=== PATIENT | female | born 1965 | race Caucasian/White ===

== ENCOUNTER 2019-03-16 11:24 | Day surgery (SDC) | payer OTHER ==
[2019-03-16] MEDS ORDERED: Depo-Medrol 40 MG/ML IM ONE (11:25)
[2019-03-16] MEDS ORDERED: Xylocaine 1% Vial 30 ML PF IJ ONE (11:25)
[2019-03-16] MEDS ORDERED: Sodium Chloride 0.9(Preservative Free) 10 ML IJ ONE (11:25)
[2019-03-16] MEDS ORDERED: DIPRIVAN 200 MG/20 ML IV ONE (12:28)
[2019-03-16] MEDS ORDERED: Ketamine HCl 50 MG/ML ONE (12:28)
--- NOTE | 2019-03-16 13:37 | XRAY ---
Indication: L5-S1 RODNEY. Intraoperative fluoroscopy was provided for 19 seconds. 2 digital spot images submitted for interpretation demonstrates midline needle tip projecting just posterior to the inferior L5 segment. Small amount of contrast injected for needle tip placement. Correlate with intraoperative findings/report.
--- NOTE | 2019-03-16 14:02 | XRAY ---
19 seconds fluoroscopy time in surgery for L5-S1 RODNEY.
[2019-03-16] MEDS ORDERED: Lactated Ringers 1,000 ML IV ONE (15:25)
== END 2019-03-16 13:08 | disposition home or self-care (01) ==
LOC: SDC-PAIN 11:24
PROVIDERS: ATTEND Psychiatry & Neurology Pain Medicine
DX: M54.16 Radiculopathy, lumbar region (principal); I10 Essential (primary) hypertension; F32.9 Major depressive disorder, single episode, unspecified; Z79.899 Other long term (current) drug therapy
CPT/HCPCS: 62323; 72100; 77003; J1030; J2001; J2704

== ENCOUNTER 2020-02-01 14:21 | Day surgery (SDC) | payer OTHER ==
[2020-02-01] MEDS ORDERED: Depo-Medrol 40 MG/ML IM ONE (14:22)
[2020-02-01] MEDS ORDERED: Marcaine 0.5% SDV 10 ML IJ ONE (14:22)
[2020-02-01] MEDS ORDERED: Lactated Ringers 1,000 ML IV ONE (16:38)
--- NOTE | 2020-02-01 16:39 | XRAY ---
24 seconds fluoroscopy time in surgery for bilateral SI joint injections.
--- NOTE | 2020-02-01 16:49 | XRAY ---
Indication: Left SI joint injection. Intraoperative fluoroscopy was provided for 24 seconds. 2 digital spot images submitted for interpretation demonstrates posterior needle tip projecting over the inferior left SI joint. Correlate with intraoperative findings/report.
== END 2020-02-01 15:37 | disposition home or self-care (01) ==
LOC: SDC-PAIN 14:21
PROVIDERS: ATTEND Psychiatry & Neurology Pain Medicine
DX: M46.1 Sacroiliitis, not elsewhere classified (principal); I10 Essential (primary) hypertension; Z79.899 Other long term (current) drug therapy
CPT/HCPCS: 27096; 72202; 77002; J1030; G0260

== ENCOUNTER 2020-04-18 12:31 | Day surgery (SDC) | payer BC, OTHER ==
[~2020-04-18 12:31] MED LIST: DIPRIVAN 200 MG/20 ML IV ONE; Ketamine HCl 50 MG/ML ONE
[2020-04-18] MEDS ORDERED: BUPIVACAINE 0.5% VIAL IJ ONE (12:32)
[2020-04-18] MEDS ORDERED: Lactated Ringers 1,000 ML IV ONE (15:51)
--- NOTE | 2020-04-18 16:26 | XRAY ---
Indication: Ganglion nerve block. Intraoperative fluoroscopy was provided for 25 seconds. Single digital spot image submitted for interpretation demonstrates posterior needle tip projecting just anterior to the sacrococcygeal junction. Small amount of contrast injected needle tip placement. Correlate with intraoperative findings/report.
--- NOTE | 2020-04-18 16:28 | XRAY ---
25 seconds fluoroscopy time in surgery for ganglion impar nerve block.
== END 2020-04-18 14:30 | disposition home or self-care (01) ==
LOC: SDC-PAIN 12:31
PROVIDERS: ATTEND Psychiatry & Neurology Pain Medicine
DX: M54.81 Occipital neuralgia (principal); I10 Essential (primary) hypertension; F41.8 Other specified anxiety disorders; Z79.899 Other long term (current) drug therapy
CPT/HCPCS: 64520; 72220; 77002; J2704; Q9966

== ENCOUNTER 2020-08-22 08:55 | Day surgery (SDC) | payer BC ==
[2020-08-22] MEDS ORDERED: LIDOCAINE HCL 2% 100 MG/5 ML IJ ONE (08:56)
[2020-08-22] MEDS ORDERED: Depo-Medrol 40 MG/ML IM ONE (08:56)
[2020-08-22] MEDS ORDERED: Ketamine HCl 50 MG/ML ONE (09:34)
[2020-08-22] MEDS ORDERED: DIPRIVAN 200 MG/20 ML IV ONE (09:34)
--- NOTE | 2020-08-22 11:25 | XRAY ---
Indication: Bilateral L4-L5 and L5-S1 MBB. Intraoperative fluoroscopy was provided for 31 seconds. Single digital spot image submitted for interpretation demonstrates posterior needle tips projecting over the left and right L3-L5 nerve roots. Correlate with intraoperative findings/report.
--- NOTE | 2020-08-22 11:39 | XRAY ---
31 seconds of fluoroscopy was used in surgery for a bilateral L4-L5 and L5-S1 MBB.
[2020-08-22] MEDS ORDERED: Lactated Ringers 1,000 ML IV ONE (14:59)
== END 2020-08-22 11:00 | disposition home or self-care (01) ==
LOC: SDC-PAIN 08:55
PROVIDERS: ATTEND Psychiatry & Neurology Pain Medicine
DX: M47.816 Spondylosis without myelopathy or radiculopathy, lumbar region (principal); I10 Essential (primary) hypertension; Z79.899 Other long term (current) drug therapy
CPT/HCPCS: 64493; 64494; 72020; 77002; J1030; J2704

== ENCOUNTER 2020-09-12 12:00 | Day surgery (SDC) | payer BC ==
[2020-09-12] MEDS ORDERED: Depo-Medrol 40 MG/ML IM ONE (12:01)
[2020-09-12] MEDS ORDERED: BUPIVACAINE 0.5% VIAL IJ ONE (12:01)
[2020-09-12] MEDS ORDERED: DIPRIVAN 200 MG/20 ML IV ONE (13:53)
[2020-09-12] MEDS ORDERED: Ketamine HCl 50 MG/ML ONE (13:53)
[2020-09-12] MEDS ORDERED: BENADRYL 50 MG/ML ONE (13:54)
[2020-09-12] MEDS ORDERED: Lactated Ringers 1,000 ML IV ONE (14:06)
--- NOTE | 2020-09-12 16:16 | XRAY ---
Indication: Bilateral L4-S1 MBB. Intraoperative fluoroscopy provided for 36 seconds. Single digital spot image submitted for interpretation demonstrates posterior needle tips projecting over the expected left and right L4-S1 nerve roots. Correlate with intraoperative findings/report.
--- NOTE | 2020-09-12 16:17 | XRAY ---
36 seconds fluoroscopy time in surgery for bilateral L4-S1 MBB.
== END 2020-09-12 14:32 | disposition home or self-care (01) ==
LOC: SDC-PAIN 12:00
PROVIDERS: ATTEND Psychiatry & Neurology Pain Medicine
DX: M47.816 Spondylosis without myelopathy or radiculopathy, lumbar region (principal); I10 Essential (primary) hypertension; Z79.899 Other long term (current) drug therapy
CPT/HCPCS: 64493; 64494; 72020; 77002; J1030; J1200; J2704

== ENCOUNTER 2020-11-07 12:00 | Day surgery (SDC) | payer BC ==
[2020-11-07] MEDS ORDERED: Depo-Medrol 40 MG/ML IM ONE (12:01)
[2020-11-07] MEDS ORDERED: BUPIVACAINE 0.5% VIAL IJ ONE (12:01)
[2020-11-07] MEDS ORDERED: Xylocaine 1% Vial 30 ML PF IJ ONE (12:01)
[2020-11-07] MEDS ORDERED: Ketamine HCl 50 MG/ML ONE (13:25)
[2020-11-07] MEDS ORDERED: DIPRIVAN 200 MG/20 ML IV ONE ×2 (13:25→13:37)
[2020-11-07] MEDS ORDERED: Lactated Ringers 1,000 ML IV ONE (13:53)
--- NOTE | 2020-11-07 14:55 | XRAY ---
Indication: Left L4-S1 RFA. Intraoperative fluoroscopy was provided for 49 seconds. 5 digital spot image submitted for interpretation demonstrates posterior needle tips projecting over the expected left left L4-S1 nerve roots. Correlate with intraoperative findings/report.
--- NOTE | 2020-11-07 15:08 | XRAY ---
49 seconds fluoroscopy time in surgery for left L4-S1 RFA.
== END 2020-11-07 14:05 | disposition home or self-care (01) ==
LOC: SDC-PAIN 12:00
PROVIDERS: ATTEND Psychiatry & Neurology Pain Medicine
DX: M47.816 Spondylosis without myelopathy or radiculopathy, lumbar region (principal); I10 Essential (primary) hypertension; F32.9 Major depressive disorder, single episode, unspecified; Z79.899 Other long term (current) drug therapy
CPT/HCPCS: 64635; 64636; 72100; 77002; J1030; J2001; J2704

== ENCOUNTER 2020-11-14 07:02 | Day surgery (SDC) | payer BC ==
[2020-11-14] MEDS ORDERED: Depo-Medrol 40 MG/ML IM ONE (07:03)
[2020-11-14] MEDS ORDERED: BUPIVACAINE 0.5% VIAL IJ ONE (07:03)
[2020-11-14] MEDS ORDERED: Xylocaine 1% Vial 30 ML PF IJ ONE (07:03)
[2020-11-14] MEDS ORDERED: DIPRIVAN 200 MG/20 ML IV ONE (07:32)
--- NOTE | 2020-11-14 09:08 | XRAY ---
Indication: Right L4-S1 RFA. Intraoperative fluoroscopy provided for 44 seconds. 4 digital spot images submitted for interpretation demonstrates posterior needle tips projecting over the expected right L4-S1 nerve roots. Correlate with intraoperative findings/report.
--- NOTE | 2020-11-14 09:08 | XRAY ---
44 seconds fluoroscopy time in surgery for right L4-S1 RFA.
[2020-11-14] MEDS ORDERED: Lactated Ringers 1,000 ML IV ONE (16:08)
== END 2020-11-14 08:32 | disposition home or self-care (01) ==
LOC: SDC-PAIN 07:02
PROVIDERS: ATTEND Psychiatry & Neurology Pain Medicine
DX: M47.816 Spondylosis without myelopathy or radiculopathy, lumbar region (principal); I10 Essential (primary) hypertension; F41.8 Other specified anxiety disorders; E07.9 Disorder of thyroid, unspecified; Z79.899 Other long term (current) drug therapy
CPT/HCPCS: 64635; 64636; 72100; 77002; J1030; J2001; J2704

== ENCOUNTER 2021-05-29 14:34 | Day surgery (SDC) | payer BC ==
[2021-05-29] MEDS ORDERED: Depo-Medrol 40 MG/ML IM ONE (14:35)
[2021-05-29] MEDS ORDERED: BUPIVACAINE 0.5% VIAL IJ ONE (14:35)
[2021-05-29] MEDS ORDERED: DIPRIVAN 200 MG/20 ML IV ONE (16:56)
[2021-05-29] MEDS ORDERED: Lactated Ringers 1,000 ML IV ONE (17:31)
--- NOTE | 2021-05-30 07:22 | XRAY ---
Indication: Left knee injection. Intraoperative fluoroscopy provided for 9 seconds. Single digital spot image submitted for interpretation demonstrates needle tip projecting left femur intercondylar notch. Small amount of contrast injected for needle tip placement. Correlate with intraoperative findings/report.
--- NOTE | 2021-05-30 07:32 | XRAY ---
Indication: Right knee injection. Intraoperative fluoroscopy provided for 9 seconds. Single digital spot image submitted for interpretation demonstrates needle tip projecting right femur intercondylar notch. Small amount of contrast injected for needle tip placement. Correlate with intraoperative findings/report.
--- NOTE | 2021-05-30 09:07 | XRAY ---
9 seconds fluoroscopy time in surgery for intra-articular injection of the right knee.
--- NOTE | 2021-05-30 09:17 | XRAY ---
9 seconds fluoroscopy time in surgery for intra-articular injection of the left knee.
== END 2021-05-29 17:24 | disposition home or self-care (01) ==
LOC: SDC-PAIN 14:34
PROVIDERS: ATTEND Psychiatry & Neurology Pain Medicine
DX: M17.0 Bilateral primary osteoarthritis of knee (principal); F41.9 Anxiety disorder, unspecified; F32.9 Major depressive disorder, single episode, unspecified; I10 Essential (primary) hypertension; M19.90 Unspecified osteoarthritis, unspecified site; Z79.899 Other long term (current) drug therapy
CPT/HCPCS: 20610; 73560; 77002; J1030; J2704; Q9966

== ENCOUNTER 2021-09-26 08:47 | Day surgery (SDC) | payer BC ==
[2021-09-26] MEDS ORDERED: Depo-Medrol 40 MG/ML IM ONE (08:48)
[2021-09-26] MEDS ORDERED: BUPIVACAINE 0.5% VIAL IJ ONE (08:48)
[2021-09-26] MEDS ORDERED: DIPRIVAN 200 MG/20 ML IV ONE (10:17)
[2021-09-26] MEDS ORDERED: Lactated Ringers 1,000 ML IV ONE (10:29)
--- NOTE | 2021-09-27 09:53 | XRAY ---
Indication: Right knee injection. Intraoperative fluoroscopy provided for 7 seconds. Single digital spot image submitted for interpretation demonstrates needle tip projecting right femur intercondylar notch. Small amount of contrast injected for needle tip placement. Correlate with intraoperative findings/report.
--- NOTE | 2021-09-27 09:53 | XRAY ---
Indication: Left knee injection. Intraoperative fluoroscopy provided for 5 seconds. Single digital spot image submitted for interpretation demonstrates needle tip projecting left femur intercondylar notch. Small amount of contrast injected for needle tip placement. Correlate with intraoperative findings/report.
--- NOTE | 2021-09-27 09:58 | XRAY ---
7 seconds of fluoroscopy was used in surgery for a right knee intra-articular injection.
--- NOTE | 2021-09-27 09:58 | XRAY ---
5 seconds of fluoroscopy was used in surgery for a left knee intra-articular injection.
== END 2021-09-26 10:45 | disposition home or self-care (01) ==
LOC: SDC-PAIN 08:47
PROVIDERS: ATTEND Psychiatry & Neurology Pain Medicine
DX: M17.0 Bilateral primary osteoarthritis of knee (principal); I10 Essential (primary) hypertension; Z79.899 Other long term (current) drug therapy
CPT/HCPCS: 20610; 73560; 77002; J1030; J2704; Q9966

== ENCOUNTER 2021-10-24 11:33 | Day surgery (SDC) | payer BC ==
[2021-10-24] MEDS ORDERED: Sodium Chloride 0.9(Preservative Free) 10 ML IJ ONE (11:34)
[2021-10-24] MEDS ORDERED: Xylocaine 1% Vial 30 ML PF IJ ONE (11:34)
[2021-10-24] MEDS ORDERED: Depo-Medrol 40 MG/ML IM ONE (11:34)
[2021-10-24] MEDS ORDERED: DIPRIVAN 200 MG/20 ML IV ONE (12:48)
[2021-10-24] MEDS ORDERED: BENADRYL 50 MG/ML ONE (12:49)
--- NOTE | 2021-10-24 13:41 | XRAY ---
Indication: Lumbar RODNEY. Intraoperative fluoroscopy provided for 22 seconds. 2 digital spot image submitted for interpretation demonstrates midline posterior needle tip projecting posterior to L4-L5 interspace. Small amount of contrast injected for needle tip placement. Correlate with intraoperative findings/report.
[2021-10-24] MEDS ORDERED: Lactated Ringers 1,000 ML IV ONE (13:56)
--- NOTE | 2021-10-24 15:33 | XRAY ---
22 seconds of fluoroscopy was used in surgery for a lumbar RODNEY.
== END 2021-10-24 13:22 | disposition home or self-care (01) ==
LOC: SDC-PAIN 11:33
PROVIDERS: ATTEND Psychiatry & Neurology Pain Medicine
DX: M54.16 Radiculopathy, lumbar region (principal); I10 Essential (primary) hypertension; Z79.899 Other long term (current) drug therapy
CPT/HCPCS: 62323; 72100; 77003; J1030; J1200; J2001; J2704; Q9966

== ENCOUNTER 2021-11-27 12:29 | Day surgery (SDC) | payer BC ==
[2021-11-27] MEDS ORDERED: Depo-Medrol 40 MG/ML IM ONE (12:30)
[2021-11-27] MEDS ORDERED: Sodium Chloride 0.9(Preservative Free) 10 ML IJ ONE (12:30)
[2021-11-27] MEDS ORDERED: BENADRYL 50 MG/ML ONE (13:19)
[2021-11-27] MEDS ORDERED: Lactated Ringers 1,000 ML IV ONE (14:06)
[2021-11-27] MEDS ORDERED: DIPRIVAN 200 MG/20 ML IV ONE ×2 (14:34→14:47)
--- NOTE | 2021-11-27 15:10 | XRAY ---
Indication: Caudal RODNEY. Intraoperative fluoroscopy provided for 48 seconds. 2 digital spot image submitted for interpretation demonstrates caudal needle tip projecting mid sacrum. Small amount of contrast injected for needle tip placement. Correlate with intraoperative findings/report.
--- NOTE | 2021-11-27 16:28 | XRAY ---
48 seconds fluoroscopy time in surgery for caudal RODNEY.
== END 2021-11-27 15:10 | disposition home or self-care (01) ==
LOC: SDC-PAIN 12:29
PROVIDERS: ATTEND Psychiatry & Neurology Pain Medicine
DX: M54.16 Radiculopathy, lumbar region (principal); I10 Essential (primary) hypertension; Z79.899 Other long term (current) drug therapy
CPT/HCPCS: 62323; 72100; 77003; J1030; J1200; J2704; Q9966

== ENCOUNTER 2022-01-15 13:56 | Day surgery (SDC) | payer BC ==
[2022-01-15] MEDS ORDERED: Sodium Chloride 0.9(Preservative Free) 10 ML IJ ONE (13:57)
[2022-01-15] MEDS ORDERED: Depo-Medrol 40 MG/ML IM ONE (13:57)
[2022-01-15] MEDS ORDERED: BENADRYL 50 MG/ML ONE (17:38)
[2022-01-15] MEDS ORDERED: DIPRIVAN 200 MG/20 ML IV ONE (17:38)
[2022-01-15] MEDS ORDERED: Lactated Ringers 1,000 ML IV ONE (19:28)
--- NOTE | 2022-01-15 21:31 | XRAY ---
Indication: Left L4-S1 transforaminal RODNEY. Intraoperative fluoroscopy provided for 39 seconds. 4 digital spot image submitted for interpretation demonstrates posterior needle tips projecting over the expected left L4 and L5 nerve roots. Small amount of contrast injected for needle tip placement. Correlate with intraoperative findings/report.
--- NOTE | 2022-01-16 09:13 | XRAY ---
39 seconds of fluoroscopy was used in surgery for a left L4-S1 transforaminal RODNEY.
== END 2022-01-15 18:03 | disposition home or self-care (01) ==
LOC: SDC-PAIN 13:56
PROVIDERS: ATTEND Psychiatry & Neurology Pain Medicine
DX: M54.16 Radiculopathy, lumbar region (principal); Z79.899 Other long term (current) drug therapy
CPT/HCPCS: 64483; 64484; 72100; 77003; J1030; J1200; J2704; Q9966

== ENCOUNTER 2022-04-02 13:40 | Day surgery (SDC) | payer BC ==
[2022-04-02] MEDS ORDERED: Marcaine Mpf 0.5% Vial 30 Ml IJ ONE (13:41)
[2022-04-02] MEDS ORDERED: Depo-Medrol 40 MG/ML IM ONE (13:41)
[2022-04-02] MEDS ORDERED: DIPRIVAN 200 MG/20 ML IV ONE (15:18)
[2022-04-02] MEDS ORDERED: Lactated Ringers 1,000 ML IV ONE (15:20)
[2022-04-02] MEDS ORDERED: BENADRYL 50 MG/ML ONE (15:21)
--- NOTE | 2022-04-02 16:45 | XRAY ---
Indication: Right shoulder injection Intraoperative fluoroscopy provided for 26 seconds. Single digital spot image submitted for interpretation demonstrates needle tip projecting over the right glenohumeral joint superiorly. Small amount of contrast injected for needle tip placement. Correlate with intraoperative findings/report.
--- NOTE | 2022-04-02 16:52 | XRAY ---
26 seconds of fluoroscopy was used in surgery for a right shoulder intra-articular injection.
== END 2022-04-02 15:47 | disposition home or self-care (01) ==
LOC: SDC-PAIN 13:40
PROVIDERS: ATTEND Psychiatry & Neurology Pain Medicine
DX: M19.011 Primary osteoarthritis, right shoulder (principal); Z79.899 Other long term (current) drug therapy
CPT/HCPCS: 20610; 73030; 77002; J1030; J1200; J2704; Q9966

== ENCOUNTER 2022-07-02 07:46 | Day surgery (SDC) | payer BC ==
[2022-07-02] MEDS ORDERED: BUPIVACAINE 0.5% VIAL IJ ONE (07:47)
[2022-07-02] MEDS ORDERED: Depo-Medrol 40 MG/ML IM ONE (07:47)
[2022-07-02] MEDS ORDERED: Xylocaine 1% Vial 30 ML PF IJ ONE (07:47)
[2022-07-02] MEDS ORDERED: DIPRIVAN 200 MG/20 ML IV ONE (09:10)
[2022-07-02] MEDS ORDERED: Ketamine HCl 50 MG/ML ONE (09:12)
[2022-07-02] MEDS ORDERED: Lactated Ringers 1,000 ML IV ONE (10:27)
--- NOTE | 2022-07-02 19:33 | XRAY ---
Indication: Left L4-S1 RFA. Intraoperative fluoroscopy provided for 34 seconds. 3 digital spot submitted for interpretation demonstrates posterior needle tips projecting over the expected left L4-S1 nerve roots. Correlate with intraoperative findings/report.
--- NOTE | 2022-07-02 20:00 | XRAY ---
34 seconds fluoroscopy time in surgery for left L4-S1 RFA.
== END 2022-07-02 09:36 | disposition home or self-care (01) ==
LOC: SDC-PAIN 07:46
PROVIDERS: ATTEND Psychiatry & Neurology Pain Medicine
DX: M47.816 Spondylosis without myelopathy or radiculopathy, lumbar region (principal); Z79.899 Other long term (current) drug therapy
CPT/HCPCS: 64635; 64636; 72100; 77002; J1030; J2001; J2704

== ENCOUNTER 2022-07-09 10:53 | Day surgery (SDC) | payer BC ==
[2022-07-09] MEDS ORDERED: Depo-Medrol 40 MG/ML IM ONE (10:54)
[2022-07-09] MEDS ORDERED: XYLOCAINE-MPF 1% 5ML SDV IJ ONE (10:54)
[2022-07-09] MEDS ORDERED: BUPIVACAINE 0.5% VIAL IJ ONE (10:54)
[2022-07-09] MEDS ORDERED: DIPRIVAN 200 MG/20 ML IV ONE (13:10)
[2022-07-09] MEDS ORDERED: BENADRYL 50 MG/ML ONE (13:16)
--- NOTE | 2022-07-09 14:01 | XRAY ---
Indication: Right L4-S1 RFA. Intraoperative fluoroscopy provided for 29 seconds. 5 digital spot images submitted for interpretation demonstrates posterior needle tips projecting over expected right L4-S1 nerve roots. Correlate with intraoperative findings/report.
[2022-07-09] MEDS ORDERED: Lactated Ringers 1,000 ML IV ONE (16:31)
--- NOTE | 2022-07-09 16:44 | XRAY ---
29 seconds of fluoroscopy was used in surgery for a right L4-S1 RFA.
== END 2022-07-09 13:50 | disposition home or self-care (01) ==
LOC: SDC-PAIN 10:53
PROVIDERS: ATTEND Psychiatry & Neurology Pain Medicine
DX: M47.816 Spondylosis without myelopathy or radiculopathy, lumbar region (principal); Z79.899 Other long term (current) drug therapy
CPT/HCPCS: 64635; 64636; 72100; 77002; 82947; J1030; J1200; J2704

== ENCOUNTER 2022-09-03 13:52 | Day surgery (SDC) | payer BC ==
[2022-09-03] MEDS ORDERED: BUPIVACAINE 0.5% VIAL IJ ONE (13:53)
[2022-09-03] MEDS ORDERED: Depo-Medrol 40 MG/ML IM ONE (13:53)
[2022-09-03] MEDS ORDERED: BENADRYL 50 MG/ML ONE (14:13)
[2022-09-03] MEDS ORDERED: TORAdol 30 mg Injection ONE (14:13)
[2022-09-03] MEDS ORDERED: Zofran 4 MG/2 ML VIAL ONE (14:13)
[2022-09-03] MEDS ORDERED: DIPRIVAN 200 MG/20 ML IV ONE (15:39)
[2022-09-03] MEDS ORDERED: Lactated Ringers 1,000 ML IV ONE (16:50)
--- NOTE | 2022-09-03 17:00 | XRAY ---
Indication: Bilateral SI joint injection. Intraoperative fluoroscopy provided for 19 seconds. 4 digital spot images submitted for interpretation demonstrates posterior needle tip projecting over the left and right SI joint. Correlate with intraoperative findings/report.
--- NOTE | 2022-09-03 20:02 | XRAY ---
19 seconds of fluoroscopy was used in surgery for a bilateral sacroiliac joint injection.
== END 2022-09-03 16:17 | disposition home or self-care (01) ==
LOC: SDC-PAIN 13:52
PROVIDERS: ATTEND Psychiatry & Neurology Pain Medicine
DX: M46.1 Sacroiliitis, not elsewhere classified (principal); Z79.899 Other long term (current) drug therapy
CPT/HCPCS: 27096; 72202; 77002; J1030; J1200; J1885; J2405; J2704; G0260

== ENCOUNTER 2023-05-21 09:03 | Day surgery (SDC) | payer BC ==
[2023-05-21] MEDS ORDERED: BUPIVACAINE 0.5% VIAL IJ ONE (09:04)
[2023-05-21] MEDS ORDERED: Depo-Medrol 40 MG/ML IM ONE (09:04)
[2023-05-21] MEDS ORDERED: BENADRYL 50 MG/ML ONE (11:24)
[2023-05-21] MEDS ORDERED: DIPRIVAN 200 MG/20 ML IV ONE (11:46)
--- NOTE | 2023-05-21 12:28 | XRAY ---
Indication: Left knee and pes anserine bursa injection. Intraoperative fluoroscopy provided for 4 seconds. Single digital spot image submitted for interpretation demonstrates needle tip projecting over left femur intercondylar notch necks. Small amount of contrast injected for needle tip placement. Correlate with intraoperative findings/report.
--- NOTE | 2023-05-21 12:28 | XRAY ---
Indication: Right knee and pes anserine bursa injection. Intraoperative fluoroscopy provided for 6 seconds. Single digital spot image submitted for interpretation demonstrates needle tip projecting over right femur intercondylar notch necks. Small amount of contrast injected for needle tip placement. Correlate with intraoperative findings/report.
[2023-05-21] MEDS ORDERED: Lactated Ringers 1,000 ML IV ONE (12:29)
--- NOTE | 2023-05-21 12:33 | XRAY ---
6 seconds of fluoroscopy was used in surgery for a right intra-articular knee and pes anserine bursa injection.
--- NOTE | 2023-05-21 12:33 | XRAY ---
4 seconds of fluoroscopy was used in surgery for a left intra-articular knee and pes anserine bursa injection.
== END 2023-05-21 12:15 | disposition home or self-care (01) ==
LOC: SDC-PAIN 09:03
PROVIDERS: ATTEND Psychiatry & Neurology Pain Medicine
DX: M17.0 Bilateral primary osteoarthritis of knee (principal)
CPT/HCPCS: 20610; 73560; 77002; J1030; J1200; J2704; Q9966

== ENCOUNTER 2023-07-01 13:29 | Day surgery (SDC) | payer BC ==
[2023-07-01] MEDS ORDERED: Depo-Medrol 40 MG/ML IM ONE (13:30)
[2023-07-01] MEDS ORDERED: BUPIVACAINE 0.5% VIAL IJ ONE (13:30)
[2023-07-01] MEDS ORDERED: XYLOCAINE-MPF 1% 5ML SDV IJ ONE (13:30)
[2023-07-01] MEDS ORDERED: Versed 2 MG/2 ML Injection ONE (15:49)
[2023-07-01] MEDS ORDERED: DIPRIVAN 200 MG/20 ML IV ONE (15:49)
[2023-07-01] MEDS ORDERED: BENADRYL 50 MG/ML ONE (15:52)
[2023-07-01] MEDS ORDERED: Lactated Ringers 1,000 ML IV ONE (16:28)
--- NOTE | 2023-07-01 20:57 | XRAY ---
Indication: Right L4-S1 RFA. Intraoperative fluoroscopy provided for 33 seconds. 7 digital spot image submitted for interpretation demonstrates posterior needle tip projecting over the expected right L4-S1 nerve roots. Correlate with intraoperative findings/report.
--- NOTE | 2023-07-01 21:44 | XRAY ---
33 seconds of fluoroscopy was used in surgery for a right L4-S1 RFA.
== END 2023-07-01 16:25 | disposition home or self-care (01) ==
LOC: SDC-PAIN 13:29
PROVIDERS: ATTEND Psychiatry & Neurology Pain Medicine
DX: M47.816 Spondylosis without myelopathy or radiculopathy, lumbar region (principal)
CPT/HCPCS: 64635; 64636; 72100; 77002; J1030; J1200; J2250; J2704

== ENCOUNTER 2023-07-02 13:42 | Day surgery (SDC) | payer BC ==
[2023-07-02] MEDS ORDERED: XYLOCAINE-MPF 1% 5ML SDV IJ ONE (13:43)
[2023-07-02] MEDS ORDERED: Depo-Medrol 40 MG/ML IM ONE (13:43)
[2023-07-02] MEDS ORDERED: BUPIVACAINE 0.5% VIAL IJ ONE (13:43)
[2023-07-02] MEDS ORDERED: DIPRIVAN 200 MG/20 ML IV ONE ×2 (15:11→15:19)
[2023-07-02] MEDS ORDERED: Lactated Ringers 1,000 ML IV ONE (15:35)
--- NOTE | 2023-07-02 16:22 | XRAY ---
Indication: Left L4-S1 RFA. Intraoperative fluoroscopy provided for 35 seconds. 3 digital spot images submitted for interpretation demonstrates posterior needle tips projecting over the expected left L4-S1 nerve roots. Correlate with intraoperative findings/report.
--- NOTE | 2023-07-03 11:51 | XRAY ---
35 seconds of fluoroscopy was used in surgery for a left L4-S1 RFA.
== END 2023-07-02 15:30 | disposition home or self-care (01) ==
LOC: SDC-PAIN 13:42
PROVIDERS: ATTEND Psychiatry & Neurology Pain Medicine
DX: M47.817 Spondylosis without myelopathy or radiculopathy, lumbosacral region (principal)
CPT/HCPCS: 64635; 64636; 72100; 77002; J1030; J2704

== ENCOUNTER 2023-09-09 12:51 | Day surgery (SDC) | payer BC, SELFPAY ==
[2023-09-09] MEDS ORDERED: XYLOCAINE-MPF 1% 5ML SDV IJ ONE (12:52)
[2023-09-09] MEDS ORDERED: BUPIVACAINE 0.5% VIAL IJ ONE (12:52)
[2023-09-09] MEDS ORDERED: Lactated Ringers 1,000 ML IV ONE (15:35)
[2023-09-09] MEDS ORDERED: DIPRIVAN 200 MG/20 ML IV ONE (15:45)
--- NOTE | 2023-09-09 17:03 | XRAY ---
Indication: Ganglion IMPAR block. Intraoperative fluoroscopy provided for 18 seconds. 3 digital spot images submitted for interpretation demonstrates posterior needle tip projecting just anterior to sacrococcyx. Small amount of contrast injected for needle tip placement. Correlate with intraoperative findings/report.
--- NOTE | 2023-09-09 17:41 | XRAY ---
18 seconds of fluoroscopy was used in surgery for a ganglion impar block.
== END 2023-09-09 16:18 | disposition home or self-care (01) ==
LOC: SDC-PAIN 12:51
PROVIDERS: ATTEND Psychiatry & Neurology Pain Medicine
DX: M53.3 Sacrococcygeal disorders, not elsewhere classified (principal)
CPT/HCPCS: 64520; 72220; 77002; 77003; J2704; Q9966

== ENCOUNTER 2023-09-23 06:49 | Day surgery (SDC) | payer BC ==
[2023-09-23] MEDS ORDERED: XYLOCAINE-MPF 1% 5ML SDV IJ ONE (06:50)
[2023-09-23] MEDS ORDERED: Decadron 4 MG INJ IV ONE (06:50)
[2023-09-23] MEDS ORDERED: Sodium Chloride 0.9(Preservative Free) 10 ML IJ ONE (06:50)
[2023-09-23] MEDS ORDERED: BENADRYL 50 MG/ML ONE (07:46)
[2023-09-23] MEDS ORDERED: DIPRIVAN 200 MG/20 ML IV ONE (08:47)
[2023-09-23] MEDS ORDERED: Lactated Ringers 1,000 ML IV ONE ×2 (08:54→09:20)
[2023-09-23] MEDS ORDERED: MORPHINE SULFATE 2 MG INJ ONE ×2 (09:09→09:21)
--- NOTE | 2023-09-23 11:27 | XRAY ---
Indication: Left L4-S1 transforaminal RODNEY. Intraoperative fluoroscopy provided for 40 seconds. 4 digital spot image submitted for interpretation demonstrates posterior needle tips projecting over the expected left L4 and L5 nerve roots. Small amount of contrast injected for needle tip placement. Correlate with intraoperative findings/report.
--- NOTE | 2023-09-23 11:30 | XRAY ---
Indication: Left piriformis injection. Intraoperative fluoroscopy provided for 19 seconds. Single digital spot image submitted for interpretation demonstrates posterior needle tip projecting over left piriformis. Small amount of contrast injected for needle tip placement. Correlate with intraoperative findings/report.
--- NOTE | 2023-09-23 12:06 | XRAY ---
40 seconds of fluoroscopy was used in surgery for a left L4-S1 transforaminal RODNEY.
--- NOTE | 2023-09-23 12:06 | XRAY ---
19 seconds of fluoroscopy was used in surgery for a left piriformis injection.
== END 2023-09-23 09:50 | disposition home or self-care (01) ==
LOC: SDC-PAIN 06:49
PROVIDERS: ATTEND Psychiatry & Neurology Pain Medicine
DX: M54.16 Radiculopathy, lumbar region (principal); M79.18 Myalgia, other site
CPT/HCPCS: 20552; 64483; 64484; 72100; 72170; 77002; 77003; J1100; J1200; J2270; J2704; Q9966

== ENCOUNTER 2023-10-28 14:01 | Day surgery (SDC) | payer BC ==
[2023-10-28] MEDS ORDERED: LIDOCAINE HCL 1% 50 MG/5 ML VL PF IJ ONE (14:02)
[2023-10-28] MEDS ORDERED: Decadron 4 MG INJ IV ONE (14:02)
[2023-10-28] MEDS ORDERED: Sodium Chloride 0.9(Preservative Free) 10 ML IJ ONE (14:02)
[2023-10-28] MEDS ORDERED: Lactated Ringers 1,000 ML IV ONE (16:21)
--- NOTE | 2023-10-28 16:50 | XRAY ---
Indication: Cervical RODNEY. Intraoperative fluoroscopy provided for 2 minute 6 seconds. 5 digital spot image submitted for interpretation demonstrates posterior needle tip projecting posterior to cervical thoracic junction. Small amount of contrast injected for needle tip placement. Correlate with intraoperative findings/report.
--- NOTE | 2023-10-28 18:26 | XRAY ---
Two minutes and 6 seconds of fluoroscopy was used in surgery for a cervical RODNEY.
== END 2023-10-28 16:28 | disposition home or self-care (01) ==
LOC: SDC-PAIN 14:01
PROVIDERS: ATTEND Psychiatry & Neurology Pain Medicine
DX: M54.12 Radiculopathy, cervical region (principal)
CPT/HCPCS: 62321; 72040; 77003; J1100; J2001; Q9966

== ENCOUNTER 2024-09-14 15:34 | Day surgery (SDC) | payer BC ==
[2024-09-14] MEDS ORDERED: LIDOCAINE HCL 1% AMPUL 5 ML IJ ONE (15:35)
[2024-09-14] MEDS ORDERED: ORTHOVISC IU ONE (15:35)
--- NOTE | 2024-09-14 18:17 | XRAY ---
Indication: Right knee injection. Intraoperative fluoroscopy provided for 6 seconds. Single digital spot image submitted for interpretation demonstrates needle tip projecting over right femur intercondylar notch. Small amount of contrast injected for needle tip placement. Correlate with intraoperative findings/report.
--- NOTE | 2024-09-14 18:17 | XRAY ---
Indication: Left knee injection. Intraoperative fluoroscopy provided for 10 seconds. Single digital spot image submitted for interpretation demonstrates needle tip projecting over left femur intercondylar notch. Small amount of contrast injected for needle tip placement. Correlate with intraoperative findings/report.
--- NOTE | 2024-09-14 18:19 | XRAY ---
10 seconds of fluoroscopy were used in surgery for a left intra-articular knee injection.
--- NOTE | 2024-09-14 18:19 | XRAY ---
6 seconds of fluoroscopy were used in surgery for a right intra-articular knee injection.
== END 2024-09-14 18:03 | disposition home or self-care (01) ==
LOC: SDC-PAIN 15:34
PROVIDERS: ATTEND Psychiatry & Neurology Pain Medicine
DX: M17.0 Bilateral primary osteoarthritis of knee (principal)
CPT/HCPCS: 20610; 73560; 77002; J7324; Q9966

== ENCOUNTER 2024-09-21 15:11 | Day surgery (SDC) | payer BC ==
[2024-09-21] MEDS ORDERED: ORTHOVISC IU ONE (15:12)
[2024-09-21] MEDS ORDERED: LIDOCAINE HCL 1% AMPUL 5 ML IJ ONE (15:12)
--- NOTE | 2024-09-21 18:28 | XRAY ---
Indication: Right knee injection. Intraoperative fluoroscopy provided for 20 seconds. Single digital spot image submitted for interpretation demonstrates needle tip projecting over right femur intercondylar notch. Small amount of contrast injected for needle tip placement. Correlate with intraoperative findings/report.
--- NOTE | 2024-09-21 18:30 | XRAY ---
Indication: Left knee injection. Intraoperative fluoroscopy provided for 7 seconds. Single digital spot image submitted for interpretation demonstrates needle tip projecting over left femur intercondylar notch. Small amount of contrast injected for needle tip placement. Correlate with intraoperative findings/report.
--- NOTE | 2024-09-21 18:32 | XRAY ---
7 seconds of fluoroscopy were used in surgery for a left intra-articular knee injection.
--- NOTE | 2024-09-21 18:32 | XRAY ---
20 seconds of fluoroscopy were used in surgery for a right intra-articular knee injection.
== END 2024-09-21 17:38 ==
LOC: SDC-PAIN 15:11
PROVIDERS: ATTEND Psychiatry & Neurology Pain Medicine
DX: M17.0 Bilateral primary osteoarthritis of knee (principal)
CPT/HCPCS: 20610; 73560; 77002; J7324; Q9966

== ENCOUNTER 2024-09-28 15:24 | Day surgery (SDC) | payer BC ==
[2024-09-28] MEDS ORDERED: LIDOCAINE HCL 1% 50 MG/5 ML VL IJ ONE (15:25)
[2024-09-28] MEDS ORDERED: ORTHOVISC IU ONE (15:25)
--- NOTE | 2024-09-28 17:24 | XRAY ---
Indication: Left knee injection. Intraoperative fluoroscopy provided for 5 seconds. Single digital spot images submitted for interpretation demonstrates needle tip projecting over left femur intercondylar notch. Small amount of contrast injected for needle tip placement. Correlate with intraoperative findings/report.
--- NOTE | 2024-09-28 17:24 | XRAY ---
Indication: Right knee injection. Intraoperative fluoroscopy provided for 8 seconds. Single digital spot images submitted for interpretation demonstrates needle tip projecting over right femur intercondylar notch. Small amount of contrast injected for needle tip placement. Correlate with intraoperative findings/report.
--- NOTE | 2024-09-28 21:42 | XRAY ---
5 seconds of fluoroscopy were used in surgery for a left intra-articular knee injection.
--- NOTE | 2024-09-28 21:43 | XRAY ---
8 seconds of fluoroscopy were used in surgery for a right intra-articular knee injection.
== END 2024-09-28 17:08 | disposition home or self-care (01) ==
LOC: SDC-PAIN 15:24
PROVIDERS: ATTEND Psychiatry & Neurology Pain Medicine
DX: M17.0 Bilateral primary osteoarthritis of knee (principal)
CPT/HCPCS: 20610; 73560; 77002; J7324; Q9966

== ENCOUNTER 2024-10-19 11:45 | Day surgery (SDC) | payer BC ==
[2024-10-19] MEDS ORDERED: Lactated Ringers 500 ML IV ONE (12:03)
== END 2024-10-19 12:28 | disposition home or self-care (01) ==
LOC: SDC-PAIN 11:45
PROVIDERS: ATTEND Psychiatry & Neurology Pain Medicine
DX: Z53.8 Procedure and treatment not carried out for other reasons (principal)

== ENCOUNTER 2024-10-26 11:45 | Day surgery (SDC) | payer BC, SELFPAY ==
[2024-10-26] MEDS ORDERED: LIDOCAINE HCL 1% AMPUL 5 ML IJ ONE (11:46)
[2024-10-26] MEDS ORDERED: Depo-Medrol 40 MG/ML IM ONE (11:46)
[2024-10-26] MEDS ORDERED: BUPIVACAINE 0.5% VIAL IJ ONE (11:46)
[2024-10-26] MEDS ORDERED: Lactated Ringers 500 ML IV ONE (11:49)
[2024-10-26] MEDS ORDERED: Versed 2 MG/2 ML Injection ONE (12:56)
--- NOTE | 2024-10-26 15:00 | XRAY ---
Indication: Left L4-S1 RFA. Intraoperative fluoroscopy provided for 31 seconds. 5 digital spot image submitted for interpretation demonstrate posterior needle tips projecting over expected left L4-S1 nerve roots. Correlate with intraoperative findings/report.
--- NOTE | 2024-10-26 16:28 | XRAY ---
31 seconds of fluoroscopy was used in surgery for a left L4-S1 RFA.
== END 2024-10-26 13:45 | disposition home or self-care (01) ==
LOC: SDC-PAIN 11:45
PROVIDERS: ATTEND Psychiatry & Neurology Pain Medicine
DX: M47.817 Spondylosis without myelopathy or radiculopathy, lumbosacral region (principal)
CPT/HCPCS: 64635; 64636; 72100; J2250

== ENCOUNTER 2024-11-02 10:56 | Day surgery (SDC) | payer BC ==
[2024-11-02] MEDS ORDERED: BUPIVACAINE 0.5% VIAL IJ ONE (10:57)
[2024-11-02] MEDS ORDERED: Depo-Medrol 40 MG/ML IM ONE (10:57)
[2024-11-02] MEDS ORDERED: LIDOCAINE HCL 1% AMPUL 5 ML IJ ONE (10:57)
[2024-11-02] MEDS ORDERED: Lactated Ringers 500 ML IV ONE (10:58)
[2024-11-02] MEDS ORDERED: Versed 2 MG/2 ML Injection ONE (11:56)
--- NOTE | 2024-11-02 12:53 | XRAY ---
Indication: Right L4-S1 RFA. Intraoperative fluoroscopy provided for 43 seconds. 7 digital spot image submitted for interpretation demonstrates posterior needle tips projecting over expected right L4-S1 nerve roots. Correlate with intraoperative findings/report.
--- NOTE | 2024-11-02 12:58 | XRAY ---
43 seconds of fluoroscopy was used in surgery for a right L4-S1 RFA.
== END 2024-11-02 12:49 | disposition home or self-care (01) ==
LOC: SDC-PAIN 10:56
PROVIDERS: ATTEND Psychiatry & Neurology Pain Medicine
DX: M47.816 Spondylosis without myelopathy or radiculopathy, lumbar region (principal)
CPT/HCPCS: 64635; 64636; 72100; J2250